=== PATIENT | male | born 1985 | race Hispanic/Latino ===

== ENCOUNTER → 2017-10-05 | Outpatient (CLI) | payer OTHER ==
[~2017-10-05] MED LIST: ACET1TAB12 PO
== END | disposition home or self-care (01) ==
LOC: RAH 08:26
PROVIDERS: ATTEND Surgery
DX: K43.2 Incisional hernia without obstruction or gangrene (principal)
CPT/HCPCS: 74176

== ENCOUNTER 2017-10-20 08:12 | Inpatient (IN) | payer OTHER ==
[2017-10-18 11:26] VITALS: BP 146/90
[2017-10-18 11:29] LABS: BASOPHILS % (AUTO) 0.6 % (0.0-5.0); HEMATOCRIT 46.7 % (42-54); LYMPHOCYTES % (AUTO) 30.1 % (21.0-51.0); MEAN CORPUSCULAR HEMOGLOBIN 31.1 pg (27.0-33.0); MEAN CORPUSCULAR HGB CONC 34.2 g/dL (32.0-36.0); MEAN CORPUSCULAR VOLUME 90.8 fL (79-99); MONOCYTES % (AUTO) 7.1 % (3.0-13.0); NEUTROPHILS % (AUTO) 59.2 % (40.0-77.0); PLATELET COUNT (AUTO) 280 K/uL (130-400); RED BLOOD CELL COUNT(AUTO) 5.14 MIL/uL (4.50-6.20); RED CELL DISTRIBUTION WIDTH 12.6 % (11.0-15.5); WHITE BLOOD COUNT (AUTO) 9.6 K/uL (4.8-10.8)
[2017-10-18 12:19] LABS: APPEARANCE,URINE Clear (CLEAR); BILIRUBIN,URINE Negative (NEGATIVE); COLOR,URINE Yellow (YELLOW); GLUCOSE, URINE (UA) Negative (NEGATIVE); KETONES,URINE Negative (NEGATIVE); LEUKOCYTE ESTERASE ,URINE Negative (NEGATIVE); NITRATE,URINE Negative (NEGATIVE); OCCULT BLOOD,URINE Negative (NEGATIVE); PROTEIN,URINE Negative (NEGATIVE)
[2017-10-20] VITALS (21 sets, daily range): BP systolic 107–152; BP diastolic 60–89
[~2017-10-20] VITALS: Ht 167.6 cm; Wt 96.3 kg
[~2017-10-20 08:12] MED LIST changes: -ACET1TAB12 PO; +CEFAZOLIN SODIUM 1 GM VIAL IVP SCH
[2017-10-20] MEDS ORDERED: LACTATED RINGERS 1000ML 1,000 ML IV ONE (10:01)
[2017-10-20] MEDS ORDERED: CEFAZOLIN SODIUM 1 GM VIAL ONE (10:04)
[2017-10-20] MEDS ORDERED: BUPIVACAINE/PF 0.25% 30ML VIAL IJ ONE (11:49)
[2017-10-20] MEDS ORDERED: DEXAMETHASONE SOD PHOSPHATE 10MG/ML 1ML VIAL ONE (11:59)
[2017-10-20] MEDS ORDERED: ONDANSETRON HCL 4 MG/2 ML VIAL ONE (11:59)
[2017-10-20] MEDS ORDERED: MIDAZOLAM HCL 1 MG/ML 2ML VIAL ONE (11:59)
[2017-10-20] MEDS ORDERED: PROPOFOL 10 MG/ML 20ML VIAL IV ONE ×3 (11:59→13:44)
[2017-10-20] MEDS ORDERED: LIDOCAINE PF 2% 5ML ABBOJECT ONE (11:59)
[2017-10-20] MEDS ORDERED: FENTANYL CITRATE PF 50 MCG/1 ML 2ML VIAL ONE ×2 (12:00→14:37)
[2017-10-20] MEDS ORDERED: NEOSTIGMINE METHYLSULFATE 1MG/ML IV ONE (14:12)
[2017-10-20] MEDS ORDERED: ONDANSETRON HCL 4 MG/2 ML VIAL IVP PRN (14:30)
[2017-10-20] MEDS ORDERED: ACETAMINOPHEN 325 MG TAB PO PRN (14:30)
[2017-10-20] MEDS ORDERED: ACETAMINOPHEN-CODEINE 300/30MG TAB PO PRN (14:30)
[2017-10-20] MEDS ORDERED: KETOROLAC TROMETHAMINE 30MG/ML ONE (15:00)
[2017-10-20] MEDS ORDERED: MORPHINE SULFATE 2 MG/ML 1ML SYG ONE (15:08)
[2017-10-20] MEDS: MORPHINE SULFATE 2 MG/ML 1ML SYG IV PRN (15:12)
[2017-10-20] MEDS: LACTATED RINGERS 1000ML 1,000 ML IV SCH (17:41)
[2017-10-20] MEDS: MORPHINE SULFATE 4 MG/1ML SYG IV PRN (18:49)
[2017-10-20] MEDS ORDERED: CEFAZOLIN 2GM / 50 ML 50 ML IV SCH (20:00)
[2017-10-20] MEDS: CEFAZOLIN SODIUM 1 GM VIAL IVP SCH (20:24)
[2017-10-21] VITALS (7 sets, daily range): BP systolic 105–140; BP diastolic 61–88
[2017-10-21] MEDS: MORPHINE SULFATE 2 MG/ML 1ML SYG IV PRN (00:15)
[2017-10-21] MEDS: LACTATED RINGERS 1000ML 1,000 ML IV SCH ×2 (04:11→16:57)
[2017-10-21] MEDS: MORPHINE SULFATE 4 MG/1ML SYG IV PRN (04:12)
[2017-10-21] MEDS: CEFAZOLIN SODIUM 1 GM VIAL IVP SCH ×2 (04:12→12:40)
[2017-10-21] MEDS: ACETAMINOPHEN-CODEINE 300/30MG TAB PO PRN ×2 (12:44→16:58)
[2017-10-22] MEDS: MORPHINE SULFATE 2 MG/ML 1ML SYG IV PRN (00:27)
[2017-10-22 04:13] VITALS: BP 128/85
[2017-10-22] MEDS: MORPHINE SULFATE 4 MG/1ML SYG IV PRN (05:53)
[2017-10-22] MEDS: LACTATED RINGERS 1000ML 1,000 ML IV SCH (06:50)
[2017-10-22 08:00] VITALS: BP 140/86
[2017-10-22 11:49] VITALS: BP 129/90
[2017-10-22] MEDS ORDERED: ACET1TAB12 PO (13:03)
[2017-10-22] MEDS: ACETAMINOPHEN-CODEINE 300/30MG TAB PO PRN (13:40)
== END 2017-10-22 15:25 | disposition home or self-care (01) | DRG 227 ==
LOC: DAH 08:12 → DAHIP 08:13 → 4CH 16:10
PROVIDERS: ADMIT Surgery; ATTEND Surgery
PROC: 0WUF0JZ Supplement Abdominal Wall with Synthetic Substitute, Open Approach (ICD-10-PCS; principal; 2017-10-20 11:57)
DX: K43.2 Incisional hernia without obstruction or gangrene (principal); E66.9 Obesity, unspecified; Z68.34 Body mass index [BMI] 34.0-34.9, adult; Z28.21 Immunization not carried out because of patient refusal
CPT/HCPCS: 36415; 81003; 85025; 88302; A4218; A4606; J0690; J1100; J1885; J2001; J2250; J2270; J2405; J2704; J2710; J3010; J3490; J7120